=== PATIENT | male | born 2000 | race Caucasian/White ===

== ENCOUNTER 2018-02-25 00:11 | Emergency (ER) | payer OTHER ==
[~2018-02-25] VITALS: Ht 182.9 cm; Wt 81.6 kg
[2018-02-25 00:30] VITALS: BP_SYST 134
[2018-02-25 01:11] VITALS: BP_SYST 131
== END 2018-02-25 01:11 | disposition home or self-care (01) ==
LOC: SED 00:11
DX: S61.213A Laceration without foreign body of left middle finger without damage to nail, initial encounter (principal); R03.0 Elevated blood-pressure reading, without diagnosis of hypertension; J45.909 Unspecified asthma, uncomplicated; X58.XXXA Exposure to other specified factors, initial encounter; Y93.89 Activity, other specified; Y92.89 Other specified places as the place of occurrence of the external cause; Y99.8 Other external cause status
CPT/HCPCS: 99283